=== PATIENT | female | born 1985 | race Caucasian/White ===

== ENCOUNTER 2023-05-05 22:17 | Emergency (ER) | payer OTHER, SELFPAY ==
[2023-05-05 22:30] VITALS: BP 122/79; PULSE 80; RESP 20; TEMP 36.8; O2SAT 100; BMI 33.0
--- NOTE | 2023-05-05 22:48 | PC.NURSE ---
She is in chair with RT and she is speaking in full sentences.
[2023-05-05] MEDS: BUDESONIDE 0.5 MG/2 ML NEB INH (22:54)
[2023-05-05] MEDS: ALBUTEROL/IPRATROPIUM 3 ML AMPUL INH ×2 (22:54→23:21)
[2023-05-05 23:11] VITALS: O2SAT 98
--- NOTE | 2023-05-05 23:32 | RT ---
PT was given 2 Duonebs and 1 pulmicort, breath sounds show increased air movement post tx. She is on RA sats 98% , she is able to speak in complete sentences with no respiratory distress.
--- NOTE | 2023-05-05 23:42 | ED_ITS ---
HPI - Asthma General Chief Complaint: Asthma Stated Complaint: Asthma attack Time Seen by Provider: 05/05/23 22:44 Source: patient Mode of arrival: Ambulatory History of Present Illness HPI Narrative: 37-year-old female with history of asthma presents stating that her work of breathing has been increased over the past day or so. She states that she feels like her inhalers are not working. She denies runny nose, sore throat or cough. She denies any fever or chills. She denies chest pain. No Nausea, vomiting or diarrhea. She denies any recent travel, exposure to ill persons Related Data Previous Rx's Medication Instructions Recorded prednisone 20 mg tablet 20 mg PO DAILY #5 tabs 05/05/23 Allergies Allergy/AdvReac Type Severity Reaction Status Date / Time No Known Drug Allergies Allergy Verified 05/05/23 22:30 Review of Systems Review of Systems Narrative: GENERAL: Denies chills, fatigue, malaise, fever, sweats. HEENT: Denies sinus pain, ear pain, sore throat, difficulty swallowing, dizziness. RESPIRATORY: See HPI CARDIOVASCULAR: Denies chest pain, palpitations, orthopnea, edema, GASTROINTESTINAL: Denies nausea, vomiting, abdominal pain, diarrhea, constipation, melena. : Denies dysuria, frequency, incontinence, hematuria, urinary retention. MUSCULOSKELETAL: denies weakness, joint pain, or bony pain SKIN: Denies rash, skin lesions, or other NEUROLOGIC: Denies weakness, headache, numbness, change in speech, confusion, seizures, incoordination. PSYCHIATRIC: No concerning psychosocial issues. 12 point review of systems is negative except for those stated above Patient History Social History Smoking Status: Never smoker Smoking Status: Never smoker Substance Use Type: does not use Exam Narrative Exam Narrative: GEN: AOx3 and in mild distress EYES: Pupils are equal, round, and reactive to light and accommodation. Extraoccular muscles are intact bilaterally. There is no subconjunctival hemorrhage or exudate. CHEST: No significant work of breathing though there is wheezing, no use of accessory muscles and no hypoxemia Heart rate is regular rhythm, there are no murmurs, clicks, rubs, or gallops. There is no chest wall tenderness. ABD: Abdomen is soft and nontender. There is no guarding or rebound. Bowel sounds are normal in all 4 quadrants. There is no mass or organomegaly. EXT: Full painless ROM of all extremities with no loss of sensation or strength. SKIN: Warm, pink, and dry. No erythema or rash Initial Vital Signs Initial Vital Signs: Vital Signs Temperature 98.3 F 05/05/23 22:30 Pulse Rate 80 05/05/23 22:30 Respiratory Rate 20 05/05/23 22:30 Blood Pressure 122/79 05/05/23 22:30 Pulse Oximetry 100 05/05/23 22:30 Oxygen Delivery Method Room Air 05/05/23 22:30 Course Orders Ordered: ED Orders 05/05/23 22:35 RT Consult Eval and Treat NOW Discontinued Medications Albuterol/Ipratropium (Albuterol/Ipratropium 3 Ml Ampul) 3 ml INH NOW ONE Stop: 05/05/23 22:43 Last Admin: 05/05/23 22:54 Dose: 3 ml Documented By: AMILCAR Albuterol/Ipratropium (Albuterol/Ipratropium 3 Ml Ampul) 3 ml INH NOW ONE Stop: 05/05/23 23:17 Last Admin: 05/05/23 23:21 Dose: 3 ml Documented By: AMILCAR Budesonide (Budesonide 0.5 Mg/2 Ml Neb) 0.5 mg INH NOW ONE Stop: 05/05/23 22:43 Last Admin: 05/05/23 22:54 Dose: 0.5 mg Documented By: AMILCAR Reevaluation(s) Reevaluation #1: Improved after above-stated therapies Vital Signs Vital signs: Vital Signs - 8 hr 05/05/23 22:30 05/05/23 23:11 Temperature 98.3 F Pulse Rate 80 Respiratory Rate 20 Blood Pressure 122/79 Pulse Oximetry 100 98 Oxygen Delivery Method Room Air Room Air MDM - Asthma MDM Narrative Medical decision making narrative: [37] year old patient presents with asthma exacerbation Multiple etiologies for patient's symptoms considered including, but not limited to: [Asthma exacerbation versus viral infection versus other] Prior Charts reviewed in our EMR Primary Historian: patient Patient's symptoms improved over duration of stay with above-stated therapies. Patient given prescription for steroid course, respiratory provided chamber and training Findings and discharge diagnosis discussed with patient/family followed by verbalization of understanding Return precautions discussed with patient/family whom verbalize understanding of diagnosis and plan Discharge Plan Departure Patient Disposition: Home Clinical Impression: Asthma with acute exacerbation Instructions: DI for Asthma -- Adult Activity Restrictions/Additional Instructions: *You have been diagnosed with [acute asthma exacerbation] *What to do: *Please continue to take your regular medications as directed. [x ] New medication prescriptions sent to your pharmacy: [ [facility]] [ ] New medication written as a paper prescription [ ] No new medications given *Please follow up with your primary care provider in 2-3 days, call for an appoi ntment. Let them know you were seen in the Emergency Department and that we ask that you be seen in follow up. We will electronically transmit a record of today's note if your PCP is in our system *Return to Emergency Department if you should have any new, worsening or concerning symptoms, such as [fever greater than 101 F, shaking chills, worsening pain, persistent vomiting or other bothersome symptoms] Prescriptions: New prednisone 20 mg tablet 20 mg PO DAILY Qty: 5 0RF Rx Instructions: administer with food or milk Stand Alone Forms: Patient Portal/API
--- NOTE | 2023-05-05 23:47 | PC.NURSE ---
Feels better and wants to go home.
== END 2023-05-05 23:51 | disposition home or self-care (01) ==
PROVIDERS: Emergency Provider Emergency Medicine; Referring Provider Nurse Practitioner Family
DX: J45.901 Unspecified asthma with (acute) exacerbation (principal)
CPT/HCPCS: 94640; 99283

== ENCOUNTER 2023-10-18 12:35 | Emergency (ER) | payer OTHER, SELFPAY ==
[2023-10-18 12:57] VITALS: BP 125/76; PULSE 70; RESP 17; TEMP 36.8; O2SAT 97; BMI 32.3
--- NOTE | 2023-10-18 13:20 | DI.RAD.S_ITS ---
PROCEDURE: XR SACRUM COCCYX MIN 2V INDICATIONS: fall, striking tailbone TECHNIQUE: 3 views of the sacrum and coccyx acquired. COMPARISON: None. FINDINGS: Bones: No fractures or dislocations. No suspicious bony lesions. Soft tissues: Visualized bowel gas pattern is normal. No suspicious soft tissue densities. IMPRESSION: No acute fracture. No osseous lesion. If symptoms and/or clinical suspicion for pathology persist, further assessment with repeat, or advanced imaging (e.g., CT, MRI, or bone scan) may be helpful for further assessment. Dictated by: Shahida Rivera M.D. on 10/18/2023 at 14:43 Approved by: Shahida Rivera M.D. on 10/18/2023 at 14:44
[2023-10-18] MEDS: ACETAMINOPHEN 325 MG TABLET 975 MG PO (13:31)
--- NOTE | 2023-10-18 14:22 | ED.FALL ---
HPI - Fall <Leora Pitts PA-C - Last Filed: 10/18/23 18:53> General Chief Complaint: Fall Stated Complaint: fall, hit back of head, back Time Seen by Provider: 10/18/23 13:11 Source: patient Mode of arrival: Ambulatory History of Present Illness HPI Narrative: Patient is a 38-year-old female with Crohn's disease, on Remicade infusions, who presents after being pulled down the stairs by her very strong dog. She complains of tailbone pain and a headache. She had no loss of consciousness. She endorsed blurry vision immediately after hitting her head, has improved now. She does not take any blood thinners. She has had mild nausea since the incident but no vomiting. Denies neck pain. Related Data Home Medications Medication Instructions Recorded Confirmed Control Pill ( Control) 0 PO * DOSE/FREQUENCY ##0 08/09/07 Previous Rx's Medication Instructions Recorded prednisone 20 mg tablet 20 mg PO DAILY #5 tabs 05/05/23 ondansetron 4 mg disintegrating 4 mg PO Q8H PRN nausea and 10/18/23 tablet vomiting #10 tabs Allergies Allergy/AdvReac Type Severity Reaction Status Date / Time No Known Drug Allergies Allergy Verified 10/18/23 12:57 Review of Systems <Leora Pitts PA-C - Last Filed: 10/18/23 18:53> Review of Systems ROS Unobtainable: All systems reviewed & are unremarkable except as noted in HPI and below Patient History <Leora Pitts PA-C - Last Filed: 10/18/23 18:53> Social History Smoking Status: Never smoker Smoking Status: Never smoker Substance Use Type: does not use Exam <Leora Pitts PA-C - Last Filed: 10/18/23 18:53> Narrative Exam Narrative: GENERAL: 38 year old patient appears stated age. Well-developed patient, in no acute distress. NEURO: Patient is alert and oriented x3 and with normal mood and affect. Cranial nerves II through XII are intact and there is no appreciable numbness or weakness. HEAD: Atraumatic. Normocephalic. No tenderness to palpation or depressed skull fractures. EYES: Pupils equal round and reactive. Extraocular motions intact. No scleral icterus. No injection or drainage. ENT: Nose without bleeding or purulent drainage. Airway patent. RESPIRATORY: No increased work of breathing or distress SPINE: No midline tenderness or step-offs. EXTREMITIES: No edema or joint tenderness. SKIN: No rash or erythema of visible areas Initial Vital Signs Initial Vital Signs: Vital Signs Temperature 98.2 F 10/18/23 12:57 Pulse Rate 70 10/18/23 12:57 Respiratory Rate 17 10/18/23 12:57 Blood Pressure 125/76 10/18/23 12:57 Pulse Oximetry 97 10/18/23 12:57 Oxygen Delivery Method Room Air 10/18/23 12:57 <Jewels Farooq MD - Last Filed: 10/19/23 12:42> Initial Vital Signs Initial Vital Signs: Vital Signs Temperature 98.2 F 10/18/23 12:57 Pulse Rate 70 10/18/23 12:57 Respiratory Rate 17 10/18/23 12:57 Blood Pressure 125/76 10/18/23 12:57 Pulse Oximetry 97 10/18/23 12:57 Oxygen Delivery Method Room Air 10/18/23 12:57 Scores <Leora Pitts PA-C - Last Filed: 10/18/23 18:53> [place] CT Head Rule Age <16 years old: No Patient on blood thinners: No Seizure after injury: No Exclusion: Patient NOT Excluded, Proceed to next steps GCS < 15 at 2 hr post trauma: No Suspected open or depressed skull fracture: No Any sign of basilar skull fracture (hemotympanum, raccoon eyes, Fenton's sign, CSF jovanna-/rhinorrhea): No Two or more episodes of vomiting: No Age greater or equal to 65 years: No Retrograde amnesia to the event greater or equal to 30 min: No Dangerous Mechanism (pedestrian vs. mv, occupant ejected from mv, fall from >3 ft or > 5 stairs): No Recommendation: CT unnecessary <Jewels Farooq MD - Last Filed: 10/19/23 12:42> [place] CT Head Rule Exclusion: Patient NOT Excluded, Proceed to next steps Recommendation: CT unnecessary Course <Leora Pitts PA-C - Last Filed: 10/18/23 18:53> Orders Ordered: Discontinued Medications Acetaminophen (Acetaminophen 325 Mg Tablet) 975 mg PO NOW ONE Stop: 10/18/23 13:22 Last Admin: 10/18/23 13:31 Dose: 975 mg Documented By: SCOTT Ketorolac Tromethamine (Ketorolac 30 Mg/Ml Vial) 30 mg IM NOW ONE Stop: 10/18/23 14:22 Last Admin: 10/18/23 14:39 Dose: 30 mg Documented By: LUDWIG Ondansetron HCl (Ondansetron 4 Mg Odt) 4 mg SL NOW ONE Stop: 10/18/23 14:22 Last Admin: 10/18/23 14:39 Dose: 4 mg Documented By: LUDWIG Vital Signs Vital signs: Vital Signs - 8 hr 10/18/23 12:57 10/18/23 15:07 Temperature 98.2 F 98.2 F Pulse Rate 70 64 Respiratory Rate 17 16 Blood Pressure 125/76 Pulse Oximetry 97 100 Oxygen Delivery Method Room Air Room Air <Jewels Farooq MD - Last Filed: 10/19/23 12:42> Orders Ordered: Discontinued Medications Acetaminophen (Acetaminophen 325 Mg Tablet) 975 mg PO NOW ONE Stop: 10/18/23 13:22 Last Admin: 10/18/23 13:31 Dose: 975 mg Documented By: SCOTT Ketorolac Tromethamine (Ketorolac 30 Mg/Ml Vial) 30 mg IM NOW ONE Stop: 10/18/23 14:22 Last Admin: 10/18/23 14:39 Dose: 30 mg Documented By: LUDWIG Ondansetron HCl (Ondansetron 4 Mg Odt) 4 mg SL NOW ONE Stop: 10/18/23 14:22 Last Admin: 10/18/23 14:39 Dose: 4 mg Documented By: LUDWIG Vital Signs Vital signs: Vital Signs - 8 hr 10/18/23 12:57 10/18/23 15:07 Temperature 98.2 F 98.2 F Pulse Rate 70 64 Respiratory Rate 17 16 Blood Pressure 125/76 Pulse Oximetry 97 100 Oxygen Delivery Method Room Air Room Air MDM - Fall <Leora Pitts PA-C - Last Filed: 10/18/23 18:53> Imaging Data Coccyx x-ray: Radiologist's Impression: PROCEDURE: XR SACRUM COCCYX MIN 2V INDICATIONS: fall, striking tailbone TECHNIQUE: 3 views of the sacrum and coccyx acquired. COMPARISON: None. FINDINGS: Bones: No fractures or dislocations. No suspicious bony lesions. Soft tissues: Visualized bowel gas pattern is normal. No suspicious soft tissue densities. IMPRESSION: No acute fracture. No osseous lesion. If symptoms and/or clinical suspicion for pathology persist, further assessment with repeat, or advanced imaging (e.g., CT, MRI, or bone scan) may be helpful for further assessment. Dictated by: Shahida Rivera M.D. on 10/18/2023 at 14:43 Approved by: Shahida Rivera M.D. on 10/18/2023 at 14:44 [facility] Narrative Medical decision making narrative: Multiple etiologies for patient's symptoms considered including, but not limited to: Concussion, coccyx fracture, coccyx contusion Patient with symptoms of concussion, no evidence of skull fracture, decreased level consciousness, vomiting to indicate need for CT scan-[place] head CT Tool negative. No midline spinal tenderness. Patient does complain of coccyx pain; Garcia's x-rays negative for evidence of fracture. Suspect coccyx contusion. Advised on management of concussion to include brain rest and return precautions advised. Patient given note for work. Supportive care for coccyx contusion. Pain controlled in the emergency room with Tylenol and ketorolac. Patient's symptoms improved over duration of stay with above-stated therapies. Findings and discharge diagnosis discussed with patient/family followed by verbalization of understanding Return precautions discussed with patient/family whom verbalize understanding of diagnosis and plan Discharge Plan Departure Patient Disposition: Home Clinical Impression: Concussion without loss of consciousness Qualifiers: Encounter type: initial encounter Qualified Code(s): S06.0X0A - Concussion without loss of consciousness, initial encounter Contusion of coccyx Qualifiers: Encounter type: initial encounter Qualified Code(s): S30.0XXA - Contusion of lower back and pelvis, initial encounter Instructions: DI for Concussion, How To Perform RICE (Rest, Ice, Compress, Elevate), How to Prevent Falls Activity Restrictions/Additional Instructions: *You have been diagnosed with concussion and contusion of the coccyx. There is no evidence of fracture or dislocation on your x-ray of the coccyx. As we discussed, a contusion of the coccyx can be very painful and require a long time to fully resolve. I would advise rest, ice, Tylenol. A donut cushion can be helpful for offloading some of the pressure on your coccyx. In terms of your concussion. I would recommend 48 hours of brain rest (no screens, music, reading or other stimulating activities) followed by a gradual resumption of normal activities. If you start to resume normal activities and you develop a headache, nausea, inattention or other symptoms, you need to rest and try again the next day. This may require you to have a gradual reintroduction to your normal work schedule. I have sent a short prescription for nausea medicine to your pharmacy to be used over the next several days as you recover. *What to do: *Please continue to take your regular medications as directed. [x] New medication prescriptions sent to your pharmacy: [ ] [ ] New medication written as a paper prescription [ ] No new medications given *Please follow up with your primary care provider in 2-3 days, call for an appointment. Let them know you were seen in the Emergency Department and that we ask that you be seen in follow up. We will electronically transmit a record of today's note if your PCP is in our system *If you do not have a primary care provider please contact the [facility] Resource line at [phone]. They will ask some questions about your medical history and help get you set up with a doctor in the community. *Return to Emergency Department if you should have any new, worsening or concerning symptoms, such as [fever greater than 101 F, shaking chills, worsening pain, persistent vomiting or other concerning symptoms]. Prescriptions: New ondansetron 4 mg tablet,disintegrating 4 mg PO Q8H PRN (Reason: nausea and vomiting) Qty: 10 0RF No Action Control Pill ( Control) 0 PO * [place] DOSE/FREQUENCY Qty: 0 prednisone 20 mg tablet 20 mg PO DAILY Qty: 5 0RF Rx Instructions: administer with food or milk Referrals: Miscellaneous,Doctor, [Primary Care Provider] - Stand Alone Forms: Patient Portal/API, Work Release Note ED Sign-out <Jewels Farooq MD - Last Filed: 10/19/23 12:42> Cosign ED Attending Cosmaddiature Attestation: I was immediately available in the department for consultation throughout this patient's visit. Jewels Farooq MD
[2023-10-18] MEDS: ONDANSETRON 4 MG ODT SL (14:39)
[2023-10-18] MEDS: KETOROLAC 30 MG/ML VIAL IM (14:39)
[2023-10-18 15:07] VITALS: PULSE 64; RESP 16; TEMP 36.8; O2SAT 100
== END 2023-10-18 15:07 | disposition home or self-care (01) ==
PROVIDERS: Emergency Provider Physician Assistant
DX: S06.0X0A Concussion without loss of consciousness, initial encounter (principal); S30.0XXA Contusion of lower back and pelvis, initial encounter; W10.9XXA Fall (on) (from) unspecified stairs and steps, initial encounter
CPT/HCPCS: 72220; 96372; 99283; 99284; J1885